=== PATIENT | female | born 1970 | race Caucasian/White ===

== ENCOUNTER 2019-05-15 00:28 | Outpatient (CLI) | payer OTHER, BC, SELFPAY ==
--- NOTE | 2019-05-15 08:00 | DI.MAMMO_ITS ---
SYMPTOM/DIAGNOSIS: SCREENING BILATERAL SCREENING MAMMOGRAM: Mammograms were interpreted according to the usual protocol including computer analysis with CAD system, tomosynthesis and C view imaging. Comparison is made with exams from 2011 through 2018. The breasts are composed of heterogeneously dense fibroglandular tissue, breast density category C. No suspicious masses or suspicious microcalcifications are seen. There has been no significant change. IMPRESSION: Category 1, negative mammogram. Yearly screening mammography is recommended. Breast density category C. SA ASSESSMENT OF FINDINGS: Negative. Category 1. Patient will receive a letter notifying them of these results. Bi-RADS category C. The breasts are heterogeneously dense, which may obscure small masses.
== END 2019-05-15 00:48 ==
PROVIDERS: PCP Internal Medicine; Visit Provider Internal Medicine
DX: Z12.31 Encounter for screening mammogram for malignant neoplasm of breast (principal)
CPT/HCPCS: 77063; 77067

== ENCOUNTER 2020-09-25 13:44 | Outpatient (REF) | payer MEDICARE, SELFPAY ==
[2020-09-30 14:56] LABS: Patient Race White; SARS-CoV-2 RNA Undetected (Undetected); SARS-CoV-2 Specimen Source Nasal
== END 2020-09-25 14:04 ==
LOC: NCHCN 13:44
PROVIDERS: PCP Internal Medicine; Visit Provider Family Medicine
DX: Z20.828 Contact with and (suspected) exposure to other viral communicable diseases (principal)
CPT/HCPCS: U0003

== ENCOUNTER 2020-12-16 12:14 | Emergency (ER) | payer OTHER, MEDICARE, SELFPAY ==
[2020-12-16] VITALS (38 sets, daily range): BP systolic 118–154; BP diastolic 69–97; PULSE 84–109; RESP 11–31; TEMP 36.5; O2SAT 97–100
--- NOTE | 2020-12-16 12:15 | RT.EKG_ITS ---
APPROVED REPORT Exam: Resting ECG Patient Location: E HR:96 bpm ECG Measurements Heart Rate 96 AXIS ID 160 P 20 QRSd 85 QRS 11 QT 375 T 4 QTc 475 Conclusion Sinus rhythm...normal P axis, V-rate 60- 99
--- NOTE | 2020-12-16 12:36 | DI.CT_ITS ---
EXAM: CT CHEST PE CTA CLINICAL HISTORY: sob,tachy,back pain. TECHNIQUE: Imaging Protocol: Axial CT angiography was performed with multi-slice acquisition and mu lti-planar and/or 3D reconstructions. CONTRAST MATERIAL: Intravenous: Omnipaque 350 Contrast volume:100 mL COMPARISON: No exams were available for comparison FINDINGS: Tracheobronchial tree: Patent where visualized. Pulmonary parenchyma: No consolidation or dominant measurable mass. No architectural distortion. Pulmonary Arteries: No evidence of filling defect to suggest pulmonary emboli. Mediastinum and Josy: No dominant adenopathy or fluid collection. Visualized thyroid gland: Unremarkable. Pleura: No effusion or pneumothorax. Heart: The heart is not dilated. No coronary artery calcifications are seen. No pericardial effusion. Aorta: Thoracic aorta non-dilated. No evidence of dissection. Upper abdomen: Unremarkable. Soft tissues: Unremarkable. Bones: Degenerative changes are seen in the thoracic spine. IMPRESSION: No evidence of pulmonary embolism, thoracic aortic dissection or aneurysm. Findings were discussed with the emergency department on the date of the examination. RADIATION DOSE DELIVERED: 504.95mGy.cm Total DLP DATA REPOSITORY: All CT scans at this facility are submitted to the National Radiology Data Registry (NRDR) Dose Index Registry (DIR) with the [employer] ([employer]). RADIATION OPTIMIZATION: All CT scans at this facility use at least one of these dose optimization te chniques: automated exposure control; mA and/or kV adjustment per patient size (includes targeted exa ms where dose is matched to clinical indication); or iterative reconstruction.
[2020-12-16 12:46] LABS: Abs Immature Grans 0.04 10^3/uL (0.0-0.06); Absolute Basophil Count 0.03 10^3/uL (0.0-0.2); Absolute Eosinophil Count 0.21 10^3/uL (0.0-0.7); Absolute Lymphocyte Count 2.67 10^3/uL (1.2-3.4); Absolute Neutrophil Count 6.05 10^3/uL (1.2-6.7); Basophils % 0.3; Eosinophils % 2.2; HCT 45.9 % (36.0-46.0); HGB 15.1 g/dL (11.2-15.7); Immature Grans % 0.4; Lymphocytes % 27.5; MCH 27.8 pg (27.0-33.0); MCHC 32.9 % (32.0-36.0); MCV 84.5 fL (80-95); MPV 9.2 fL (8.0-11.0); Monocytes % 7.2; Neutrophils % 62.4; Nucleated RBC 0 %; Platelet Count 400 10^3/uL (130-400); RBC 5.43 10^6/uL (3.93-5.22); RDW 13.2 % (11.7-14.6); RDW-SD 40.6 fL
[2020-12-16 13:00] LABS: PTT Activated 24.9 sec (21.0-27.5); Prothrombin Time 10.2 sec (9.3-11.0)
[2020-12-16 13:03] LABS: ALT 38 U/L (14-59); AST 20 U/L (15-37); Albumin 3.9 g/dL (3.4-5.0); Alkaline Phosphatase 127 U/L (46-116); Anion Gap 10.5 mmol/L (3-11); BUN 13 mg/dL (7-18); Bilirubin, Total 0.4 mg/dL (0.2-1.0); CO2 25.5 mmol/L (21.0-32.0); CREATININE 1.1 mg/dL (0.55-1.02); Calcium 9.1 mg/dL (8.5-10.1); Chloride 103 mmol/L (98-107); Estimated GFR 53.24 (mL/min/1.73m2); Glucose 92 mg/dL (74-106); Potassium 3.3 mmol/L (3.5-5.1); Sodium 139 mmol/L (136-145); Total Protein 8.8 g/dL (6.4-8.2); Troponin I < 0.05 ng/mL (<0.06)
[2020-12-16 13:09] LABS: Magnesium 2.1 mg/dL (1.8-2.4); NT-proBNP 24 pg/mL (<300)
[2020-12-16] MEDS: Normal Saline 1,000 ML 125 ML IV (13:10)
[2020-12-16] MEDS: Omnipaque 350 MG/ML 100 ML BTL IJ (13:29)
[2020-12-16] MEDS: Normal Saline - Diluent 50 ML VIAL IV (13:29)
[2020-12-16] MEDS: Normal Saline Flush 10 ML SYR IVP (13:30)
[2020-12-16] MEDS: Ketorolac 30 MG/ML VIAL IVP (14:01)
--- NOTE | 2020-12-16 14:13 | ED.GENADUL_ITS ---
Discharge Plan Disposition Patient Disposition: HOME Condition: Stable Discharge Details Clinical Impression: Chest pain Primary Care Provider: Emilio Upton ED Provider: Zac Nolasco Home Meds and New Rx's Prescriptions: Continued verapamil 120 mg Tablet Extended Release 120 mg PO DAILY RF: 0 doxepin 25 mg Capsule 25 mg PO QHS RF: 0 clarithromycin 500 mg Tablet 500 mg PO BID RF: 0 albuterol sulfate 1.25 mg/3 mL Solution For Nebulization 1.25 mg INHALATION QID PRNRF: 0 sucralfate 1 gram Tablet 1 g PO BID RF: 0 famotidine 40 mg Tablet 40 mg PO BID RF: 0 baclofen 10 mg Tablet 10 mg PO BID RF: 0 amlodipine 10 mg Tablet 10 mg PO DAILY RF: 0 promethazine 25 mg Tablet 25 mg PO BID PRNRF: 0 verapamil 80 mg Tablet 80 mg PO DAILY PRN (Reason: Tachyarrhythmias) RF: 0 albuterol sulfate [ProAir HFA] 90 mcg/actuation Hfa Aerosol Inhaler 2 puff INHALATION Q6H PRNRF: 0 buspirone 15 mg Tablet 15 mg PO BID RF: 0 cholecalciferol (vitamin D3) [Vitamin D3] 25 mcg (1,000 unit) Capsule 25 mcg PO DAILY RF: 0 budesonide-formoterol [Symbicort] 160-4.5 mcg/actuation Hfa Aerosol Inhaler 2 puff INHALATION BID RF: 0 cetirizine 10 mg Capsule 20 - 30 mg PO DAILY RF: 0 Spiriva Respimat 2.5 mcg/actuation Mist 2 puff INHALATION DAILY RF: 0 guaifenesin 600 mg Tablet Extended Release 12hr 600 mg PO HS RF: 0 Discharge Instructions Instructions: Chest Pain (ED) Additional Instructions: At this time your work-up in the ER is unremarkable for any obvious emergent process. You responded very well to the Toradol. Please continue the antibiotics prescribed to you yesterday. For discomfort over the next couple of days I would like you to use [id number] Tylenol and/or Motrin as directed. Please watch for new or worsening symptoms and return to the ER for any concerns. Lastly, I do recommend reaching out your primary care provider tomorrow for prompt outpatient reevaluation. Discharge Data Discharge Date/Time-TO BE ENTERED AT DEPARTURE: 12/16/20 16:37 Medical Decision Making This is a 49-year-old female, past medical history that includes asthma, hypertension, migraines, PTSD, presenting to the ER for 4-day history of what she describes as chest tightness, back pain, shortness of breath, nasal congestion, dry cough. She was seen at [facility] ER last night, had an EKG but no chest x-ray. Placed on clarithromycin for URI-sinusitis. Given her ongoing discomfort, contacted her primary care provider today and recommended to come to the ER. Clinically she is anxious, tearful, reporting right-sided back pain, chest tightness throughout. Mild tachycardia upon triage also heart rate in the 90s during my evaluation. O2 sats are 97% on room air, no evidence of tachypnea or fever. We discussed options. Given her chest tightness and back pain will initiate cardiac work-up as well as obtain chest CTA given her cough, back pain, mild tachycardia. There is no pain or swelling her legs. Patient has not taken any medication for her discomfort, is open to being given medication to treat her discomfort. Initial laboratory values are unremarkable for obvious emergent process. Creatinine of 1.1 with a GFR of 53.24. She will be given a total of 2 L of IV fluids while here in the ER. BNP 24, troponin less than 0.05. Covid pending. Chest CTA negative. Discussed initial work-up with patient. Will now provide her with 30 IV Toradol for analgesia. She is agreeable to await a repeat troponin and EKG for rapid cardiac screening. Upon reevaluation she is resting comfortably. Reports that her pain is nearly resolved completely. She is no longer anxious or tearful. She is grateful and smiling. She is still agreeable to awaiting repeat troponin and EKG. Repeat EKG performed at 1533. Please see official report by Dr. Galicia. Sinus rhythm, ventricular of 91. No STEMI. Repeat troponin less than 0.05. Discussed negative work-up with the patient. No signs of Covid-like changes on CTA, infiltrate, PE. Laboratory values unremarkable. Pain has essentially resolved with 1 dose of IV Toradol. I believe discharge is completely reasonable. She will continue taking her clarithromycin that was given yesterday for her URI-sinusitis. Recommend [id number] Tylenol and/or Motrin as directed for her discomfort. She is comfortable with this plan and has no additional questions or concerns. She was encouraged to return to the ER for new or worsening symptoms, otherwise contact her primary care provider. Medical Records Medical records reviewed: Yes I reviewed the patient's medical records. Imaging Data Radiologic Study: Attestation: I personally reviewed and interpreted this imaging study as follows: Imaging: CT Scan Radiologist's impression: Chest CTA negative per radiology Lab Data Lab results reviewed: Yes I reviewed the patient's lab results. Lab results narrative: Laboratory Tests Range/Units 12/16/20 12/16/20 12/16/20 12:35 12:35 12:35 WBC (4.4-10.8) 10^3/uL RBC (3.93-5.22) 10^6/uL Hgb (11.2-15.7) g/dL Hct (36.0-46.0) % MCV (80-95) fL MCH (27.0-33.0) pg MCHC (32.0-36.0) % RDW (11.7-14.6) % Plt Count (130-400) 10^3/uL MPV (8.0-11.0) fL Immature Gran % Neutrophils % Lymphocytes % Monocytes % Eosinophils % Basophils % Nucleated RBC % % Absolute Neutrophils (1.2-6.7) 10^3/uL Absolute Lymphocytes (1.2-3.4) 10^3/uL Absolute Monocytes (0.1-0.8) 10^3/uL Absolute Eosinophils (0.0-0.7) 10^3/uL Absolute Basophils (0.0-0.2) 10^3/uL PT (9.3-11.0) sec 10.2 INR (0.9-1.1) 1.0 APTT (21.0-27.5) sec 24.9 Sodium (136-145) mmol/L 139 Potassium (3.5-5.1) mmol/L 3.3 L Chloride (98-107) mmol/L 103 Carbon Dioxide (21.0-32.0) mmol/L 25.5 Anion Gap (3-11) mmol/L 10.5 BUN (7-18) mg/dL 13 Creatinine (0.55-1.02) mg/dL 1.1 H Estimated GFR/1.73 m2 (mL/min/1.73m2) 53.24 Glucose (74-106) mg/dL 92 Calcium (8.5-10.1) mg/dL 9.1 Magnesium (1.8-2.4) mg/dL 2.1 Total Bilirubin (0.2-1.0) mg/dL 0.4 AST (15-37) U/L 20 ALT (14-59) U/L 38 Alkaline Phosphatase (46-116) U/L 127 H Troponin I (<0.06) ng/mL < 0.05 NT-Pro-B Natriuret Pep (<300) pg/mL 24 Total Protein (6.4-8.2) g/dL 8.8 H Albumin (3.4-5.0) g/dL 3.9 Range/Units 12/16/20 12/16/20 12:35 15:40 WBC (4.4-10.8) 10^3/uL 9.70 RBC (3.93-5.22) 10^6/uL 5.43 H Hgb (11.2-15.7) g/dL 15.1 Hct (36.0-46.0) % 45.9 MCV (80-95) fL 84.5 MCH (27.0-33.0) pg 27.8 MCHC (32.0-36.0) % 32.9 RDW (11.7-14.6) % 13.2 Plt Count (130-400) 10^3/uL 400 MPV (8.0-11.0) fL 9.2 Immature Gran % 0.4 Neutrophils % 62.4 Lymphocytes % 27.5 Monocytes % 7.2 Eosinophils % 2.2 Basophils % 0.3 Nucleated RBC % % 0 Absolute Neutrophils (1.2-6.7) 10^3/uL 6.05 Absolute Lymphocytes (1.2-3.4) 10^3/uL 2.67 Absolute Monocytes (0.1-0.8) 10^3/uL 0.70 Absolute Eosinophils (0.0-0.7) 10^3/uL 0.21 Absolute Basophils (0.0-0.2) 10^3/uL 0.03 PT (9.3-11.0) sec INR (0.9-1.1) APTT (21.0-27.5) sec Sodium (136-145) mmol/L Potassium (3.5-5.1) mmol/L Chloride (98-107) mmol/L Carbon Dioxide (21.0-32.0) mmol/L Anion Gap (3-11) mmol/L BUN (7-18) mg/dL Creatinine (0.55-1.02) mg/dL Estimated GFR/1.73 m2 (mL/min/1.73m2) Glucose (74-106) mg/dL Calcium (8.5-10.1) mg/dL Magnesium (1.8-2.4) mg/dL Total Bilirubin (0.2-1.0) mg/dL AST (15-37) U/L ALT (14-59) U/L Alkaline Phosphatase (46-116) U/L Troponin I (<0.06) ng/mL < 0.05 NT-Pro-B Natriuret Pep (<300) pg/mL Total Protein (6.4-8.2) g/dL Albumin (3.4-5.0) g/dL ECG Data Attestation: I personally reviewed and interpreted this ECG (s) as follows: Interpretation: Please see official report by Dr. Galicia. Sinus rhythm, ventricular rate of 96. No STEMI. HPI General Mode of arrival: ambulatory . Date/Time Provider Initiated Documentation: 12/16/20 12:33 . Limitations to Documentation: no limitations . Information obtained by: patient . HPI Narrative: This is a 49-year-old female who has a past medical history that includes asthma, hypertension, TBI, fibromyalgia, PTSD, migraines, GERD, presenting to the ER for evaluation. She reports 4-day history of generalized chest tightness, feels like I have a lung infection, generalized chest discomfort worse with pain into her right shoulder blade, that pain is made worse with rotational trunk movement. She does report sinus congestion, dry cough, and intermittent shortness of breath over the past couple of days. Denies any fever, current headache, neck pain, abdominal pain, nausea, vomiting, change in bowel or bladder function, pain or swelling in her legs. She was seen last night at [facility], had an EKG performed, they did not perform a chest x-ray which she felt like she likely needed. She was given clarithromycin for an infection. She contacted her outpatient provider today and they suggested coming to the ER for her ongoing discomfort. Related Data Home Medications Medication Instructions Recorded Confirmed Spiriva Respimat 2 puff INHALATION DAILY 12/16/20 12/16/20 albuterol sulfate 1.25 mg INHALATION QID PRN 12/16/20 12/16/20 albuterol sulfate [ProAir HFA] 2 puff INHALATION Q6H PRN 12/16/20 12/16/20 amlodipine 10 mg PO DAILY 12/16/20 12/16/20 baclofen 10 mg PO BID 12/16/20 12/16/20 budesonide-formoterol [Symbicort] 2 puff INHALATION BID 12/16/20 12/16/20 buspirone 15 mg PO BID 12/16/20 12/16/20 cetirizine 20 - 30 mg PO DAILY 12/16/20 12/16/20 cholecalciferol (vitamin D3) 25 mcg PO DAILY 12/16/20 12/16/20 [Vitamin D3] clarithromycin 500 mg PO BID 12/16/20 12/16/20 doxepin 25 mg PO QHS 12/16/20 12/16/20 famotidine 40 mg PO BID 12/16/20 12/16/20 guaifenesin 600 mg PO HS 12/16/20 12/16/20 promethazine 25 mg PO BID PRN 12/16/20 12/16/20 sucralfate 1 g PO BID 12/16/20 12/16/20 verapamil 80 mg PO DAILY PRN 12/16/20 12/16/20 verapamil 120 mg PO DAILY 12/16/20 12/16/20 Allergies Allergy/AdvReac Type Severity Reaction Status Date / Time amoxicillin Allergy Unverified 12/16/20 12:34 latex Allergy Unverified 12/16/20 12:34 Sulfa (Sulfonamide Allergy Unverified 12/16/20 12:34 Antibiotics) General Stated Complaint: SOB KARON: 2 Review of Systems Constitutional Constitutional: Denies fever(s) and Denies headache(s) ENT Ears, Nose, Mouth, and Throat: Denies headache(s), Reports nasal congestion, Denies neck pain and Denies sore throat Cardiovascular Cardiovascular: Reports chest pain and Reports dyspnea Respiratory Respiratory: Reports cough (Mild, dry) and Reports dyspnea Gastrointestinal Gastrointestinal: Denies abdominal pain, Denies nausea and Denies vomiting Genitourinary Genitourinary: Denies dysuria Musculoskeletal Musculoskeletal: Reports back pain and Denies neck pain Neurologic Neurologic: Denies headache(s) FOR[facility], [facility] Medical History Family history of breast cancer in first degree relative sister in her 30s. lumpectomy, chemo. A+W. Hx of cervical cervical adencarcinoma in situ Dx and treated prior to vag hyst 2010. The hysterectomy was for dysmenorrhea. Hypertension stable with treatment. Migraine PTSD (post-traumatic stress disorder) [facility]. Remains in [employer]. Surgical History Vaginal hysterectomy (08/19/11) LAV for dysmenorrhea. GT. Family History Father Diabetes Myocardial infarction Sister Neoplasm breast cancer dx in her 30s. s/p lumpectomy, chemo. A+W Grandmother No problems noted. Social History Smoking/Tobacco Use Status: Never Smoking risk assessment performed?: Yes Alcohol Intake: never Drug use: Never Do you feel safe at home: Yes Do you feel safe in your relationship?: Yes Exam Const General: cooperative, healthy appearing, anxious and other (Uncomfortable, tearful) Orientation: alert and awake [facility] Head: normal to inspection, normocephalic and atraumatic General nose exam: external nose normal and no nasal discharge Face and sinus: normal facial exam Mouth: moist mucous membranes Throat: posterior oropharynx normal Eyes General: appearance normal, both eyes and all related structures Conjunctivae: conjunctivae normal Sclera: sclerae normal Neck Neck: normal visual inspection, full ROM, no meningeal signs, trachea midline and supple Resp Effort & Inspection: normal respiratory effort and able to speak in complete sentences Auscultation: clear to auscultation bilaterally Cardio Rate: regular rate Rhythm: regular rhythm GI Palpation: soft and nontender Back/Spine/Pelvis Back: No back tenderness Skin General skin exam: no rashes or lesions noted Neuro General: patient alert, patient awake, moves all extremities and no focal motor deficits Cognition: normal cognition Speech: speech normal Sensory Exam: no sensory deficits noted Extrem General: normal to inspection, full ROM, capillary refill normal, no pedal edema and no calf tenderness Psych Appearance: grossly normal Mental Status: mental status grossly normal Course Vital Signs Vital signs: Vital Signs Temperature 36.5 C 12/16/20 12:25 Pulse 102 H 12/16/20 12:25 Respiratory Rate 21 12/16/20 12:25 Blood Pressure 139/87 12/16/20 12:25 Pulse Oximetry 97 12/16/20 12:25 Temperature 36.5 C 12/16/20 12:25 Temperature Source Temporal Artery Scan 12/16/20 12:25 Pulse 102 H 12/16/20 12:25 Respiratory Rate 22 12/16/20 13:35 Respiratory Effort 12/16/20 13:35 Respiratory Depth Normal 12/16/20 13:35 Respiratory Pattern Tachypnea 12/16/20 13:35 Blood Pressure 139/87 12/16/20 12:25 Blood Pressure Position Supine 12/16/20 12:25 Pulse Oximetry 97 12/16/20 12:25 Oxygen Delivery Method Room Air 12/16/20 12:25 Oxygen Flow Rate 0 12/16/20 12:25 Pain Level 9 12/16/20 13:35 Lab/Test Results Lab/Test Results: Laboratory Tests Range/Units 12/16/20 12/16/20 12/16/20 12:35 12:35 12:35 WBC (4.4-10.8) 10^3/uL RBC (3.93-5.22) 10^6/uL Hgb (11.2-15.7) g/dL Hct (36.0-46.0) % MCV (80-95) fL MCH (27.0-33.0) pg MCHC (32.0-36.0) % RDW (11.7-14.6) % Plt Count (130-400) 10^3/uL MPV (8.0-11.0) fL Immature Gran % Neutrophils % Lymphocytes % Monocytes % Eosinophils % Basophils % Nucleated RBC % % Absolute Neutrophils (1.2-6.7) 10^3/uL Absolute Lymphocytes (1.2-3.4) 10^3/uL Absolute Monocytes (0.1-0.8) 10^3/uL Absolute Eosinophils (0.0-0.7) 10^3/uL Absolute Basophils (0.0-0.2) 10^3/uL PT (9.3-11.0) sec 10.2 INR (0.9-1.1) 1.0 APTT (21.0-27.5) sec 24.9 Sodium (136-145) mmol/L 139 Potassium (3.5-5.1) mmol/L 3.3 L Chloride (98-107) mmol/L 103 Carbon Dioxide (21.0-32.0) mmol/L 25.5 Anion Gap (3-11) mmol/L 10.5 BUN (7-18) mg/dL 13 Creatinine (0.55-1.02) mg/dL 1.1 H Estimated GFR/1.73 m2 (mL/min/1.73m2) 53.24 Glucose (74-106) mg/dL 92 Calcium (8.5-10.1) mg/dL 9.1 Magnesium (1.8-2.4) mg/dL 2.1 Total Bilirubin (0.2-1.0) mg/dL 0.4 AST (15-37) U/L 20 ALT (14-59) U/L 38 Alkaline Phosphatase (46-116) U/L 127 H Troponin I (<0.06) ng/mL < 0.05 NT-Pro-B Natriuret Pep (<300) pg/mL 24 Total Protein (6.4-8.2) g/dL 8.8 H Albumin (3.4-5.0) g/dL 3.9 Range/Units 12/16/20 12:35 WBC (4.4-10.8) 10^3/uL 9.70 RBC (3.93-5.22) 10^6/uL 5.43 H Hgb (11.2-15.7) g/dL 15.1 Hct (36.0-46.0) % 45.9 MCV (80-95) fL 84.5 MCH (27.0-33.0) pg 27.8 MCHC (32.0-36.0) % 32.9 RDW (11.7-14.6) % 13.2 Plt Count (130-400) 10^3/uL 400 MPV (8.0-11.0) fL 9.2 Immature Gran % 0.4 Neutrophils % 62.4 Lymphocytes % 27.5 Monocytes % 7.2 Eosinophils % 2.2 Basophils % 0.3 Nucleated RBC % % 0 Absolute Neutrophils (1.2-6.7) 10^3/uL 6.05 Absolute Lymphocytes (1.2-3.4) 10^3/uL 2.67 Absolute Monocytes (0.1-0.8) 10^3/uL 0.70 Absolute Eosinophils (0.0-0.7) 10^3/uL 0.21 Absolute Basophils (0.0-0.2) 10^3/uL 0.03 PT (9.3-11.0) sec INR (0.9-1.1) APTT (21.0-27.5) sec Sodium (136-145) mmol/L Potassium (3.5-5.1) mmol/L Chloride (98-107) mmol/L Carbon Dioxide (21.0-32.0) mmol/L Anion Gap (3-11) mmol/L BUN (7-18) mg/dL Creatinine (0.55-1.02) mg/dL Estimated GFR/1.73 m2 (mL/min/1.73m2) Glucose (74-106) mg/dL Calcium (8.5-10.1) mg/dL Magnesium (1.8-2.4) mg/dL Total Bilirubin (0.2-1.0) mg/dL AST (15-37) U/L ALT (14-59) U/L Alkaline Phosphatase (46-116) U/L Troponin I (<0.06) ng/mL NT-Pro-B Natriuret Pep (<300) pg/mL Total Protein (6.4-8.2) g/dL Albumin (3.4-5.0) g/dL
[2020-12-16] MEDS: Normal Saline 1,000 ML 1000 ML IV (14:30)
--- NOTE | 2020-12-16 15:30 | RT.EKG_ITS ---
APPROVED REPORT Exam: Resting ECG Patient Location: E HR:91 bpm ECG Measurements Heart Rate 91 AXIS [place] 160 P 19 QRSd 89 QRS 16 QT 395 T -2 QTc 488 Conclusion Sinus rhythm...normal P axis, V-rate 60- 99
[2020-12-16 16:18] LABS: Troponin I < 0.05 ng/mL (<0.06)
[2020-12-17 14:20] LABS: COVID-19 RT-PCR UVMMC Result Negative (Negative)
== END 2020-12-16 16:37 | disposition home or self-care (01) ==
PROVIDERS: Emergency Provider Physician Assistant; PCP Internal Medicine
DX: R07.89 Other chest pain (principal); R06.02 Shortness of breath; R05 Cough; Z03.818 Encounter for observation for suspected exposure to other biological agents ruled out
CPT/HCPCS: 36415; 71275; 80053; 93005; 96361; 96374; 99285; U0003; U0005; 83735; 83880; 84484; 85025; 85610; 85730; 93010; 99284; J1885; J3490